=== PATIENT | female | born 1985 | race African-American/Black ===

== ENCOUNTER 2019-06-21 12:28 | Emergency (ER) | payer MEDICAID ==
[~2019-06-21] VITALS: Ht 157.5 cm; Wt 55.0 kg
[2019-06-21] MEDS ORDERED: SODIUM CHLORIDE 0.9% 1,000 ML IV ONE (15:16)
[2019-06-21] MEDS ORDERED: ONDANSETRON HCL 4MG/2ML INJ IV STA (15:16)
[2019-06-21] MEDS ORDERED: MORPHINE SULFATE 4 MG/ML CPJ (NOT FOR IM USE) IV STA (15:16)
[2019-06-21 17:01] LABS: HEMATOCRIT. 35.3 % (36.0-48.0); MEAN CORPUSCULAR HEMOGLOBIN 29.5 pg (28.0-32.0); MEAN CORPUSCULAR VOLUME 87.1 fL (81.0-99.0); MEAN PLATELET VOLUME 7.7 fl (7.4-10.4); PLATELET 291 x1000/uL (130-400); RED BLOOD CELL COUNT 4.06 mill/uL (4.2-5.4)
[2019-06-21 17:03] LABS: CHLORIDE 109 mEq/L (98-107)
[2019-06-21 17:06] LABS: HCG SCREEN NEGATIVE
[2019-06-21 17:17] LABS: CLARITY URINE CLOUDY (CLEAR); COLOR URINE YELLOW (YELLOW); KETONES URINE TRACE (NEGATIVE); LEUKOCYTE ESTERASE URINE 2+ (NEGATIVE); NITRITE URINE NEGATIVE (NEGATIVE); OCCULT BLOOD URINE TRACE (NEGATIVE); PROTEIN URINE TRACE (NEGATIVE); SPECIFIC GRAVITY URINE 1.031 (1.005-1.030)
[2019-06-21] MEDS ORDERED: CEFTRIAXONE 1 G PREMIX 50 ML IV ONE (17:45)
[2019-06-21 18:21] LABS: PLATELET ESTIMATE NORMAL
[2019-06-21 19:42] VITALS: BP 106/54
== END 2019-06-21 19:42 | disposition home or self-care (01) ==
LOC: ER 12:38
DX: N39.0 Urinary tract infection, site not specified (principal); N83.201 Unspecified ovarian cyst, right side; Z52.4 Kidney donor
CPT/HCPCS: 36415; 74176; 76830; 76856; 80053; 81003; 81025; 83690; 84703; 85025; 87086; 96365; 96375; 99284; J0696; J2270; J2405; J7030; Z7610

== ENCOUNTER 2022-04-11 11:55 | Emergency (ER) | payer MEDICAID, OTHER ==
[~2022-04-11] VITALS: Ht 157.5 cm; Wt 54.0 kg
[2022-04-11 12:07] VITALS: BP 124/51
== END 2022-04-11 14:28 | disposition left against medical advice (07) ==
LOC: ER 11:55
DX: Z53.21 Procedure and treatment not carried out due to patient leaving prior to being seen by health care provider (principal)

== ENCOUNTER 2022-06-15 06:31 | Emergency (ER) | payer OTHER ==
[~2022-06-15] VITALS: Ht 157.5 cm; Wt 56.8 kg
[2022-06-15] MEDS ORDERED: SODIUM CHLORIDE 0.9% 1,000 ML IV ONE (08:45)
[2022-06-15] MEDS ORDERED: ACETAMINOPHEN 325MG TABLET PO PRN (08:45)
[2022-06-15 12:12] LABS: CLARITY URINE CLEAR (CLEAR); COLOR URINE YELLOW (YELLOW); KETONES URINE NEGATIVE (NEGATIVE); LEUKOCYTE ESTERASE URINE 2+ (NEGATIVE); NITRITE URINE NEGATIVE (NEGATIVE); OCCULT BLOOD URINE NEGATIVE (NEGATIVE); PROTEIN URINE TRACE (NEGATIVE); SPECIFIC GRAVITY URINE 1.031 (1.005-1.030)
[2022-06-15] MEDS ORDERED: METRONIDAZOLE 500MG TABLET PO ONE (12:45)
[2022-06-15] MEDS ORDERED: METR375C2 MT (12:46)
[2022-06-15] MEDS ORDERED: ACET-2708 MT (12:46)
[2022-06-15 12:50] LABS: CHLORIDE 111 mEq/L (98-107)
[2022-06-15 13:01] LABS: *AMPHETAMINES SCREEN URINE NEGATIVE (NEGATIVE); *BARBITURATES SCREEN URINE NEGATIVE (NEGATIVE); *BENZODIAZEPINES SCREEN URINE NEGATIVE (NEGATIVE); METHADONE URINE SCREEN NEGATIVE (NEGATIVE); OPIATES URINE SCREEN NEGATIVE (NEGATIVE); PHENCYCLIDINE URINE SCREEN NEGATIVE (NEGATIVE)
[2022-06-15 13:03] LABS: *COCAINE SCREEN URINE PRESUMTIVE POSITIVE (NEGATIVE); CANNABINOID URINE SCREEN PRESUMTIVE POSITIVE (NEGATIVE)
[2022-06-15 13:07] VITALS: BP 131/75
[2022-06-15 13:07] LABS: B-HCG QUANTITATIVE < 1 mIU/mL (<3)
== END 2022-06-15 13:08 | disposition home or self-care (01) ==
LOC: ER 06:47
DX: N84.0 Polyp of corpus uteri (principal); A59.01 Trichomonal vulvovaginitis
CPT/HCPCS: 36415; 76830; 76856; 80053; 80305; 81003; 81025; 84702; 86850; 86900; 86901; 87210; 87591; 99284; J7030; Z7610

== ENCOUNTER 2022-09-21 10:47 | Emergency (ER) | payer MEDICAID, OTHER ==
[~2022-09-21] VITALS: Ht 160 cm; Wt 54.0 kg
[~2022-09-21 10:47] MED LIST: ACET-2708 MT; METR375C2 MT
[2022-09-21 10:57] VITALS: BP 118/89
[2022-09-21] MEDS ORDERED: KETOROLAC 60MG/2ML VIAL IM ONE (13:45)
[2022-09-21 14:08] LABS: HEMATOCRIT. 35.1 % (36.0-48.0); HEMOGLOBIN. 11.7 g/dL (12.0-16.0); MEAN CORPUSCULAR HEMOGLOBIN 28.2 pg (28.0-32.0); MEAN CORPUSCULAR VOLUME 84.8 fL (81.0-99.0); MEAN PLATELET VOLUME 7.3 fl (7.4-10.4); PLATELET 426 x1000/uL (130-400); RED BLOOD CELL COUNT 4.14 mill/uL (4.2-5.4); RED CELL DISTRIBUTION WIDTH 16.5 % (11.6-14.6)
[2022-09-21 14:14] LABS: CHLORIDE 112 mEq/L (98-107)
[2022-09-21 14:24] LABS: HCG SCREEN NEGATIVE
[2022-09-21 14:25] LABS: PLATELET ESTIMATE INCREASED
== END 2022-09-21 14:57 | disposition home or self-care (01) ==
LOC: ER 10:47
DX: M79.18 Myalgia, other site (principal); M06.9 Rheumatoid arthritis, unspecified; Z20.822 Contact with and (suspected) exposure to COVID-19
CPT/HCPCS: 36415; 80053; 81025; 84703; 85025; 87426; 87804; 96372; 99283; C9803; J1885

== ENCOUNTER 2023-05-30 21:22 | Emergency (ER) | payer MEDICAID, OTHER ==
[~2023-05-30] VITALS: Ht 160 cm; Wt 54.0 kg
[2023-05-30 21:33] VITALS: BP 123/76; TEMP 98.7; O2SAT 100
[2023-05-30 21:34] VITALS: PULSE 68; RESP 14
[2023-05-30] MEDS ORDERED: TOPUD MT (21:35)
[2023-05-30] MEDS ORDERED: ACETAMINOPHEN 325MG TABLET PO ONE (21:45)
== END 2023-05-30 21:48 | disposition home or self-care (01) ==
LOC: ER 21:22
DX: N63.0 Unspecified lump in unspecified breast (principal); F12.90 Cannabis use, unspecified, uncomplicated; M19.90 Unspecified osteoarthritis, unspecified site; Z98.890 Other specified postprocedural states
CPT/HCPCS: 99282